=== PATIENT | male | born 1940 | race Caucasian/White ===

== ENCOUNTER 2020-01-12 11:55 | Day surgery (SDC) | payer MEDICARE ==
[2020-01-12] MEDS ORDERED: LIDOcaine 2% 5ml jelly ONE (12:42)
[2020-01-12 14:27] LABS: BASOPHILS # (AUTO) 0.1 X10'3 (0-0.2); BASOPHILS % (AUTO) 0.7 % (0-1); EOSINOPHILS # (AUTO) 0.3 X10'3 (0-0.9); EOSINOPHILS % (AUTO) 3.3 % (0-6); HEMATOCRIT 40.7 % (42.0-52.0); HEMOGLOBIN 13.8 g/dl (14.0-17.9); LYMPHOCYTES # (AUTO) 1.3 X10'3 (1.1-4.8); LYMPHOCYTES % (AUTO) 14.4 % (21-51); MEAN CORPUSCULAR VOLUME 91.1 FL (78-98); MEAN PLATELET VOLUME 8.5 FL (7.4-10.4); MONOCYTES # (AUTO) 0.6 X10'3 (0-0.9); MONOCYTES % (AUTO) 6.6 % (2-12); NEUTROPHILS # (AUTO) 6.6 X10'3 (1.8-7.7); PLATELET COUNT 185 X10'3 (140-440); RED BLOOD COUNT 4.46 X10'6 (4.70-6.10); RED CELL DISTRIBUTION WIDTH 13.8 % (11.5-14.5); WHITE BLOOD COUNT 8.7 X10'3 (4.5-11.0)
[2020-01-12 14:37] LABS: HEMOGLOBIN A1C 6.7 % (4.5-6.2)
[2020-01-12 14:43] LABS: ALANINE AMINOTRANSFERASE 18 U/L (12-78); ALBUMIN 3.7 G/DL (3.4-5.0); ALBUMIN/GLOBULIN RATIO 1.1 (1.1-1.5); ALKALINE PHOSPHATASE 54 IU/L (46-116); ANION GAP 8 (8-16); ASPARTATE AMINO TRANSFERASE 11 U/L (10-37); BILIRUBIN,TOTAL 0.4 MG/DL (0.1-1.0); BLOOD UREA NITROGEN 20 MG/DL (7-18); BUN/CREATININE RATIO 14.3 (5.4-32.0); CALCIUM 9.1 MG/DL (8.5-10.1); CHLORIDE 106 MMOL/L (99-107); GLUCOSE 113 MG/DL (70-104); POTASSIUM 4.6 MMOL/L (3.5-5.1); SODIUM 141 MMOL/L (135-145); TOTAL CARBON DIOXIDE 26.7 MMOL/L (24-32); TOTAL PROTEIN 7.1 G/DL (6.4-8.2); eGFR 49 ML/MIN
[2020-01-19] MEDS ORDERED: LIDOcaine 2% 5ml jelly ONE (09:02)
== END 2020-01-19 11:27 | disposition home or self-care (01) ==
LOC: WOUND CARE 11:55 → EDBD 12:20 → WOUND CARE 01-19 11:27
PROVIDERS: ATTEND Nurse Practitioner
DX: E11.621 Type 2 diabetes mellitus with foot ulcer (principal); L97.521 Non-pressure chronic ulcer of other part of left foot limited to breakdown of skin; E11.65 Type 2 diabetes mellitus with hyperglycemia; E07.9 Disorder of thyroid, unspecified; I10 Essential (primary) hypertension; Z87.891 Personal history of nicotine dependence
CPT/HCPCS: 36415; 73630; 80053; 82948; 83036; 85025; 93922; 93925; 93970; 97597

== ENCOUNTER 2020-01-26 08:37 | Day surgery (SDC) | payer MEDICARE ==
[2020-01-26] MEDS ORDERED: LIDOcaine 2% 5ml jelly ONE (09:05)
== END 2020-01-26 09:50 | disposition home or self-care (01) ==
LOC: WOUND CARE 08:37
PROVIDERS: ATTEND Nurse Practitioner
DX: E11.621 Type 2 diabetes mellitus with foot ulcer (principal); L97.521 Non-pressure chronic ulcer of other part of left foot limited to breakdown of skin; E11.622 Type 2 diabetes mellitus with other skin ulcer; L97.102 Non-pressure chronic ulcer of unspecified thigh with fat layer exposed; E11.65 Type 2 diabetes mellitus with hyperglycemia; E07.9 Disorder of thyroid, unspecified; I10 Essential (primary) hypertension; Z87.891 Personal history of nicotine dependence
CPT/HCPCS: 36416; 82948; 97597

== ENCOUNTER 2020-02-02 07:56 | Day surgery (SDC) | payer MEDICARE ==
[2020-02-02] MEDS ORDERED: LIDOcaine 2% 5ml jelly ONE (08:27)
== END 2020-02-02 09:00 | disposition home or self-care (01) ==
LOC: WOUND CARE 07:56
PROVIDERS: ATTEND Nurse Practitioner
DX: E11.621 Type 2 diabetes mellitus with foot ulcer (principal); L97.511 Non-pressure chronic ulcer of other part of right foot limited to breakdown of skin; L84 Corns and callosities; E11.622 Type 2 diabetes mellitus with other skin ulcer; L97.102 Non-pressure chronic ulcer of unspecified thigh with fat layer exposed; E11.65 Type 2 diabetes mellitus with hyperglycemia; E07.9 Disorder of thyroid, unspecified; I10 Essential (primary) hypertension; Z87.891 Personal history of nicotine dependence
CPT/HCPCS: 82948; 97597

== ENCOUNTER 2020-02-09 08:14 | Day surgery (SDC) | payer MEDICARE ==
[2020-02-09] MEDS ORDERED: LIDOcaine 2% 5ml jelly ONE (08:32)
== END 2020-02-09 09:10 | disposition home or self-care (01) ==
LOC: WOUND CARE 08:14
PROVIDERS: ATTEND Nurse Practitioner
DX: E11.621 Type 2 diabetes mellitus with foot ulcer (principal); L97.511 Non-pressure chronic ulcer of other part of right foot limited to breakdown of skin; E11.622 Type 2 diabetes mellitus with other skin ulcer; L97.102 Non-pressure chronic ulcer of unspecified thigh with fat layer exposed; I10 Essential (primary) hypertension; E11.65 Type 2 diabetes mellitus with hyperglycemia; E07.9 Disorder of thyroid, unspecified; L84 Corns and callosities; Z87.891 Personal history of nicotine dependence
CPT/HCPCS: 36416; 82948; 97597

== ENCOUNTER 2020-02-16 08:00 | Day surgery (SDC) | payer MEDICARE ==
[2020-02-16] MEDS ORDERED: LIDOcaine 2% 5ml jelly ONE (08:21)
== END 2020-02-16 08:49 | disposition home or self-care (01) ==
LOC: WOUND CARE 08:00
PROVIDERS: ATTEND Nurse Practitioner
DX: E11.621 Type 2 diabetes mellitus with foot ulcer (principal); L97.511 Non-pressure chronic ulcer of other part of right foot limited to breakdown of skin; L97.412 Non-pressure chronic ulcer of right heel and midfoot with fat layer exposed; L84 Corns and callosities; E11.65 Type 2 diabetes mellitus with hyperglycemia; E07.9 Disorder of thyroid, unspecified; I10 Essential (primary) hypertension; F40.240 Claustrophobia; Z87.891 Personal history of nicotine dependence
CPT/HCPCS: 36416; 82948; 97597

== ENCOUNTER 2020-02-26 08:00 | Day surgery (SDC) | payer MEDICARE ==
[2020-02-26] MEDS ORDERED: LIDOcaine 2% 5ml jelly ONE (08:22)
== END 2020-02-26 08:57 | disposition home or self-care (01) ==
LOC: WOUND CARE 08:00
PROVIDERS: ATTEND Nurse Practitioner
DX: E11.621 Type 2 diabetes mellitus with foot ulcer (principal); L97.511 Non-pressure chronic ulcer of other part of right foot limited to breakdown of skin; L97.412 Non-pressure chronic ulcer of right heel and midfoot with fat layer exposed; L84 Corns and callosities; E11.65 Type 2 diabetes mellitus with hyperglycemia; E07.9 Disorder of thyroid, unspecified; I10 Essential (primary) hypertension; F40.240 Claustrophobia; Z87.891 Personal history of nicotine dependence
CPT/HCPCS: 36416; 82948; 97597

== ENCOUNTER 2020-03-04 07:50 | Day surgery (SDC) | payer MEDICARE ==
[2020-03-04] MEDS ORDERED: LIDOcaine 2% 5ml jelly ONE (08:24)
== END 2020-03-04 09:00 | disposition home or self-care (01) ==
LOC: WOUND CARE 07:50
PROVIDERS: ATTEND Nurse Practitioner
DX: E11.621 Type 2 diabetes mellitus with foot ulcer (principal); L97.521 Non-pressure chronic ulcer of other part of left foot limited to breakdown of skin; L97.412 Non-pressure chronic ulcer of right heel and midfoot with fat layer exposed; E11.65 Type 2 diabetes mellitus with hyperglycemia; I10 Essential (primary) hypertension; E07.9 Disorder of thyroid, unspecified; L84 Corns and callosities; F40.240 Claustrophobia; Z87.891 Personal history of nicotine dependence
CPT/HCPCS: 36416; 82948; 97597

== ENCOUNTER 2020-03-11 08:10 | Outpatient (CLI) | payer MEDICARE ==
[2020-03-11] MEDS ORDERED: LIDOcaine 2% 5ml jelly ONE (08:35)
== END 2020-03-11 08:50 | disposition home or self-care (01) ==
LOC: WOUND CARE 08:10
PROVIDERS: ATTEND Nurse Practitioner
DX: E11.621 Type 2 diabetes mellitus with foot ulcer (principal); L97.511 Non-pressure chronic ulcer of other part of right foot limited to breakdown of skin; L97.412 Non-pressure chronic ulcer of right heel and midfoot with fat layer exposed; L84 Corns and callosities; E11.65 Type 2 diabetes mellitus with hyperglycemia; E07.9 Disorder of thyroid, unspecified; I10 Essential (primary) hypertension; F40.240 Claustrophobia; Z87.891 Personal history of nicotine dependence
CPT/HCPCS: 36416; 82948; 97597

== ENCOUNTER 2024-03-05 13:33 | Inpatient (IN) | payer MEDICARE ==
[~2024-03-05] VITALS: Ht 180.3 cm; Wt 96.0 kg
[~2024-03-05 13:33] MED LIST: ATOR10TA70 PO; FINA5TAB11 PO; LEVO75TA7 PO; LOSA50TA64 PO; METF-1203 PO; TERA10CA4 PO
[2024-03-05] MEDS: normal saline 1000ml 1,000 ML IV ONE (14:25)
[2024-03-05] MEDS: CefTRIAXone 2gm/D5W 50ml BAG 50 ML IV ONE (14:26)
[2024-03-05 14:37] LABS: BASOPHILS # (AUTO) 0.1 X10'3 (0-0.2); BASOPHILS % (AUTO) 0.6 % (0-1); EOSINOPHILS # (AUTO) 0.4 X10'3 (0-0.9); EOSINOPHILS % (AUTO) 2.5 % (0-6); HEMATOCRIT 35.9 % (42.0-52.0); HEMOGLOBIN 11.9 g/dl (14.0-17.9); LYMPHOCYTES # (AUTO) 0.9 X10'3 (1.1-4.8); LYMPHOCYTES % (AUTO) 6.6 % (21-51); MEAN CORPUSCULAR HEMOGLOBIN 29.4 PG (27.0-31.0); MEAN CORPUSCULAR HGB CONC 33.2 g/dL (33.0-36.5); MEAN CORPUSCULAR VOLUME 88.6 FL (78-98); MEAN PLATELET VOLUME 6.9 FL (7.4-10.4); MONOCYTES # (AUTO) 0.7 X10'3 (0-0.9); MONOCYTES % (AUTO) 4.8 % (2-12); NEUTROPHILS # (AUTO) 12.1 X10'3 (1.8-7.7); NEUTROPHILS % (AUTO) 85.5 % (42-75); PLATELET COUNT 399 X10'3 (140-440); RED BLOOD COUNT 4.04 X10'6 (4.70-6.10); RED CELL DISTRIBUTION WIDTH 13.5 % (11.5-14.5); WHITE BLOOD COUNT 14.2 X10'3 (4.5-11.0)
[2024-03-05] MEDS ORDERED: SULF1TAB45 PO (14:45)
[2024-03-05] MEDS ORDERED: LOSA1TAB36 PO (14:45)
[2024-03-05] MEDS ORDERED: AMLO5TAB16 PO (14:45)
[2024-03-05 15:04] LABS: ALANINE AMINOTRANSFERASE 9 U/L (12-78); ALBUMIN 3.2 G/DL (3.4-5.0); ALBUMIN/GLOBULIN RATIO 0.7 (1.1-1.5); ALKALINE PHOSPHATASE 62 IU/L (46-116); ANION GAP 8 (8-16); ASPARTATE AMINO TRANSFERASE 8 U/L (10-37); BILIRUBIN,TOTAL 0.5 MG/DL (0.1-1.0); BLOOD UREA NITROGEN 30 MG/DL (7-18); BUN/CREATININE RATIO 11.5 (10.0-20.0); CHLORIDE 102 MMOL/L (99-107); CREATININE 2.61 MG/DL (0.60-1.10); GLUCOSE 122 MG/DL (70-104); POTASSIUM 5.9 MMOL/L (3.5-5.1); SODIUM 134 MMOL/L (135-145); TOTAL CARBON DIOXIDE 23.6 MMOL/L (24-32); eCRCL 22 ML/MIN; eGFR 24 ML/MIN
[2024-03-05] MEDS: vancomycin/NS 1 GM ADD-VANTAGE 250 ML X 1 DOSE IV ONE (15:15)
[2024-03-05] MEDS ORDERED: albuterol 2.5 MG/3 ML nebule CONTNEB PRN (15:15)
[2024-03-05 15:58] LABS: BILIRUBIN,URINE NEGATIVE (Neg); CLARITY,URINE CLEAR (Clear); COLOR,URINE YELLOW (Yellow); GLUCOSE, URINE NEGATIVE (Neg); KETONES,URINE NEGATIVE (Neg); LEUKOCYTE ESTERASE ,URINE SMALL (Neg); NITRITES, URINE NEGATIVE (Neg); OCCULT BLOOD,URINE NEGATIVE (Neg); PH,URINE 6.5 (4.8-8.0); PROTEIN,URINE NEGATIVE (Neg); UROBILINOGEN,URINE 0.2 E.U/dL (0.2-1.0)
[2024-03-05 16:06] LABS: UA COLLECTION TYPE NON-SPECIFIED
[2024-03-05 16:07] LABS: SQUAMOUS EPITHELIAL CELL,UR FEW /LPF (FEW)
[2024-03-05 16:08] LABS: BACTERIA,URINE NONE SEEN /HPF (Neg); RBC,URINE 0-2 /HPF (0-2)
[2024-03-05] MEDS ORDERED: magnesium Cl slow-release 64mg tablet PO PRN (16:10)
[2024-03-05] MEDS ORDERED: magnesium sulf-water 2g/50mL 50 ML IV PRN (16:10)
[2024-03-05] MEDS ORDERED: potassium Cl 20 mEq SR tablet PO PRN ×2 (16:10)
[2024-03-05] MEDS ORDERED: magnesium sulf-water 4G/100mL 100 ML IV PRN (16:10)
[2024-03-05] MEDS ORDERED: potassium Cl 40MEQ/1/2NS 520ml 520 ML IV PRN (16:10)
[2024-03-05] MEDS: SODIUM ZIRCONIUM CYCLOSILICATE 10 GM POWD.PACK PO SCH (17:40)
[2024-03-05] MEDS: dextrose 50%-water 50ml dispensing syringe IV ONE (17:45)
[2024-03-05] MEDS: insulin regular, human 10 units/0.1 ml syringe SQ ONE (17:47)
[2024-03-05 18:30] LABS: HEMOGLOBIN A1C 6.6 % (4.5-6.2)
[2024-03-05 20:20] VITALS: BP 154/69; PULSE 90; RESP 18; TEMP 97.6; O2SAT 94
[2024-03-05] MEDS: K and/or MAG REPLACEMENT MC SCH (20:21)
[2024-03-05] MEDS ORDERED: morphine 2 MG/ML inj. syringe IV PRN (21:20)
[2024-03-05] MEDS: morphine 2 MG/ML inj. syringe IV PRN (21:41)
[2024-03-05 22:00] VITALS: BP 135/60; PULSE 84; RESP 14; TEMP 98.4; O2SAT 96
[2024-03-05] MEDS ORDERED: dextrose 50%-water 50ml dispensing syringe IV PRN ×2 (23:30)
[2024-03-05] MEDS ORDERED: glucagon, human recombinant 1mg kit SUBCUT PRN (23:30)
[2024-03-05] MEDS ORDERED: DEXTROSE 15 GM of carb/4 tabs (each vial/BOTTLE has 4 tablets) PO PRN ×2 (23:30)
[2024-03-05] MEDS ORDERED: HYDROcodone/acetaminophen 5mg/325mg tablet PO PRN (23:30)
[2024-03-06] MEDS: Melatonin 3mg tablet PO SCH (00:33)
[2024-03-06] MEDS: normal saline 1000ml 1,000 ML IV SCH (00:33)
[2024-03-06] MEDS: piperacillin/tazo 3.375gm/50ml 50 ML IV SCH (01:13)
[2024-03-06 04:48] LABS: BASOPHILS # (AUTO) 0.1 X10'3 (0-0.2); EOSINOPHILS # (AUTO) 0.5 X10'3 (0-0.9); EOSINOPHILS % (AUTO) 4.8 % (0-6); HEMATOCRIT 33.4 % (42.0-52.0); HEMOGLOBIN 10.9 g/dl (14.0-17.9); LYMPHOCYTES # (AUTO) 1.2 X10'3 (1.1-4.8); LYMPHOCYTES % (AUTO) 11.1 % (21-51); MEAN CORPUSCULAR HEMOGLOBIN 29.2 PG (27.0-31.0); MEAN CORPUSCULAR HGB CONC 32.8 g/dL (33.0-36.5); MEAN PLATELET VOLUME 7.1 FL (7.4-10.4); MONOCYTES # (AUTO) 0.8 X10'3 (0-0.9); MONOCYTES % (AUTO) 7.6 % (2-12); NEUTROPHILS # (AUTO) 8.1 X10'3 (1.8-7.7); NEUTROPHILS % (AUTO) 75.5 % (42-75); PLATELET COUNT 369 X10'3 (140-440); RED BLOOD COUNT 3.75 X10'6 (4.70-6.10); RED CELL DISTRIBUTION WIDTH 13.9 % (11.5-14.5); WHITE BLOOD COUNT 10.7 X10'3 (4.5-11.0)
[2024-03-06 05:03] LABS: ALBUMIN 2.5 G/DL (3.4-5.0); ANION GAP 8 (8-16); BLOOD UREA NITROGEN 27 MG/DL (7-18); BUN/CREATININE RATIO 11.4 (10.0-20.0); CALCIUM 8.6 MG/DL (8.5-10.1); CHLORIDE 106 MMOL/L (99-107); CREATININE 2.36 MG/DL (0.60-1.10); GLUCOSE 90 MG/DL (70-104); MAGNESIUM 1.9 MG/DL (1.5-2.4); POTASSIUM 5.9 MMOL/L (3.5-5.1); SODIUM 137 MMOL/L (135-145); TOTAL CARBON DIOXIDE 23.4 MMOL/L (24-32); eCRCL 25 ML/MIN; eGFR 26 ML/MIN
[2024-03-06 06:00] VITALS: BP 131/58; PULSE 75; RESP 18; TEMP 97.7; O2SAT 96
[2024-03-06] MEDS: INSULIN LISPRO 100 UNIT/ML INSULN.PEN MULTI-DOSE SQ SCH (07:00)
[2024-03-06] MEDS: levoTHYROXINE 75mcg tablet PO SCH (07:26)
[2024-03-06 08:00] VITALS: RESP 16; O2SAT 95
[2024-03-06] MEDS: SODIUM ZIRCONIUM CYCLOSILICATE 10 GM POWD.PACK PO SCH (09:53)
[2024-03-06 10:00] VITALS: BP 136/61; PULSE 80; RESP 16; TEMP 98.2; O2SAT 95
[2024-03-06] MEDS: HYDROcodone/acetaminophen 10/325mg tab PO PRN (13:07)
[2024-03-06] MEDS: finasteride 5mg tablet PO SCH (13:08)
[2024-03-06] MEDS: terazosin 5mg capsule PO SCH (13:08)
[2024-03-06] MEDS: amLODIPine 5mg tablet PO SCH (13:11)
[2024-03-06] MEDS: VANCOMYCIN 750MG IV in NS 250 ML IV SCH (15:56)
[2024-03-06 18:00] VITALS: BP 116/69; PULSE 83; RESP 16; TEMP 98.4; O2SAT 95
[2024-03-06 20:00] VITALS: RESP 16; O2SAT 95
[2024-03-06] MEDS: metoclopramide 5 mg/ml inj IV ONE (20:53)
[2024-03-06 22:00] VITALS: BP 127/57; PULSE 66; RESP 16; TEMP 98.1; O2SAT 93
[2024-03-07 05:28] LABS: ALBUMIN 2.4 G/DL (3.4-5.0); ANION GAP 7 (8-16); BLOOD UREA NITROGEN 30 MG/DL (7-18); BUN/CREATININE RATIO 11.4 (10.0-20.0); CALCIUM 8.6 MG/DL (8.5-10.1); CHLORIDE 103 MMOL/L (99-107); CREATININE 2.64 MG/DL (0.60-1.10); GLUCOSE 111 MG/DL (70-104); POTASSIUM 5.8 MMOL/L (3.5-5.1); SODIUM 136 MMOL/L (135-145); TOTAL CARBON DIOXIDE 26.4 MMOL/L (24-32); eCRCL 22 ML/MIN; eGFR 23 ML/MIN
[2024-03-07 05:29] LABS: BASOPHILS # (AUTO) 0.1 X10'3 (0-0.2); BASOPHILS % (AUTO) 1.2 % (0-1); EOSINOPHILS # (AUTO) 0.5 X10'3 (0-0.9); EOSINOPHILS % (AUTO) 4.6 % (0-6); HEMATOCRIT 32.4 % (42.0-52.0); HEMOGLOBIN 10.7 g/dl (14.0-17.9); LYMPHOCYTES # (AUTO) 1.2 X10'3 (1.1-4.8); LYMPHOCYTES % (AUTO) 12.4 % (21-51); MEAN CORPUSCULAR HEMOGLOBIN 29.5 PG (27.0-31.0); MEAN CORPUSCULAR HGB CONC 33.1 g/dL (33.0-36.5); MEAN CORPUSCULAR VOLUME 89.1 FL (78-98); MEAN PLATELET VOLUME 7.4 FL (7.4-10.4); MONOCYTES # (AUTO) 0.8 X10'3 (0-0.9); MONOCYTES % (AUTO) 8.4 % (2-12); NEUTROPHILS # (AUTO) 7.4 X10'3 (1.8-7.7); NEUTROPHILS % (AUTO) 73.4 % (42-75); PLATELET COUNT 381 X10'3 (140-440); RED BLOOD COUNT 3.64 X10'6 (4.70-6.10); RED CELL DISTRIBUTION WIDTH 13.6 % (11.5-14.5); WHITE BLOOD COUNT 10.1 X10'3 (4.5-11.0)
[2024-03-07 06:43] VITALS: BP 122/64; PULSE 66; RESP 14; TEMP 97.8; O2SAT 93
[2024-03-07 08:00] VITALS: RESP 15; O2SAT 93
[2024-03-07] MEDS: docusate sod 100mg capsule PO SCH (08:13)
[2024-03-07 09:29] LABS: THYROID STIMULATING HORMONE 4.19 ulU/ml (0.34-4.50)
[2024-03-07 10:00] VITALS: BP 132/63; PULSE 81; RESP 15; TEMP 98; O2SAT 93
[2024-03-07] MEDS: magnesium hydroxide 30ml (MOM) UD suspension PO PRN (15:31)
[2024-03-07 18:00] VITALS: BP 115/54; PULSE 73; RESP 15; TEMP 97.7; O2SAT 93
[2024-03-07 20:00] VITALS: RESP 16; O2SAT 95
[2024-03-07 22:00] VITALS: BP 149/79; PULSE 67; RESP 16; TEMP 98.3; O2SAT 95
[2024-03-08 06:00] VITALS: BP 138/59; PULSE 63; RESP 18; TEMP 98; O2SAT 93
[2024-03-08 06:40] LABS: ALBUMIN 2.4 G/DL (3.4-5.0); ANION GAP 6 (8-16); BLOOD UREA NITROGEN 31 MG/DL (7-18); BUN/CREATININE RATIO 11.9 (10.0-20.0); CALCIUM 8.6 MG/DL (8.5-10.1); CHLORIDE 103 MMOL/L (99-107); GLUCOSE 102 MG/DL (70-104); MAGNESIUM 2.3 MG/DL (1.5-2.4); POTASSIUM 5.1 MMOL/L (3.5-5.1); SODIUM 136 MMOL/L (135-145); TOTAL CARBON DIOXIDE 26.7 MMOL/L (24-32); eCRCL 23 ML/MIN; eGFR 24 ML/MIN
[2024-03-08 06:46] LABS: BASOPHILS # (AUTO) 0.1 X10'3 (0-0.2); BASOPHILS % (AUTO) 1.1 % (0-1); EOSINOPHILS # (AUTO) 0.5 X10'3 (0-0.9); EOSINOPHILS % (AUTO) 5.8 % (0-6); HEMATOCRIT 32.2 % (42.0-52.0); HEMOGLOBIN 10.7 g/dl (14.0-17.9); LYMPHOCYTES # (AUTO) 1.4 X10'3 (1.1-4.8); LYMPHOCYTES % (AUTO) 14.4 % (21-51); MEAN CORPUSCULAR HEMOGLOBIN 29.4 PG (27.0-31.0); MEAN CORPUSCULAR HGB CONC 33.1 g/dL (33.0-36.5); MEAN CORPUSCULAR VOLUME 88.7 FL (78-98); MEAN PLATELET VOLUME 7.3 FL (7.4-10.4); MONOCYTES # (AUTO) 0.7 X10'3 (0-0.9); MONOCYTES % (AUTO) 7.9 % (2-12); NEUTROPHILS # (AUTO) 6.6 X10'3 (1.8-7.7); NEUTROPHILS % (AUTO) 70.8 % (42-75); PLATELET COUNT 360 X10'3 (140-440); RED BLOOD COUNT 3.63 X10'6 (4.70-6.10); RED CELL DISTRIBUTION WIDTH 13.4 % (11.5-14.5); WHITE BLOOD COUNT 9.4 X10'3 (4.5-11.0)
[2024-03-08 08:00] VITALS: RESP 18; O2SAT 93
[2024-03-08 10:00] VITALS: BP 128/66; PULSE 72; RESP 16; TEMP 98.3; O2SAT 94
[2024-03-08] MEDS: VANCOMYCIN LEVEL IV ONE (15:19)
[2024-03-08] MEDS: bisacodyl 10mg suppository rectal RC PRN (16:42)
[2024-03-08 18:50] VITALS: BP 113/55; PULSE 73; RESP 16; TEMP 98.1; O2SAT 93
[2024-03-09 06:13] LABS: BASOPHILS # (AUTO) 0.1 X10'3 (0-0.2); BASOPHILS % (AUTO) 1.1 % (0-1); EOSINOPHILS # (AUTO) 0.6 X10'3 (0-0.9); EOSINOPHILS % (AUTO) 6.4 % (0-6); HEMATOCRIT 32.7 % (42.0-52.0); HEMOGLOBIN 10.7 g/dl (14.0-17.9); LYMPHOCYTES # (AUTO) 1.5 X10'3 (1.1-4.8); LYMPHOCYTES % (AUTO) 16.5 % (21-51); MEAN CORPUSCULAR HEMOGLOBIN 29.3 PG (27.0-31.0); MEAN CORPUSCULAR HGB CONC 32.8 g/dL (33.0-36.5); MEAN CORPUSCULAR VOLUME 89.5 FL (78-98); MEAN PLATELET VOLUME 7.4 FL (7.4-10.4); MONOCYTES # (AUTO) 0.7 X10'3 (0-0.9); MONOCYTES % (AUTO) 7.4 % (2-12); NEUTROPHILS # (AUTO) 6.3 X10'3 (1.8-7.7); NEUTROPHILS % (AUTO) 68.6 % (42-75); PLATELET COUNT 337 X10'3 (140-440); RED BLOOD COUNT 3.65 X10'6 (4.70-6.10); RED CELL DISTRIBUTION WIDTH 13.5 % (11.5-14.5); WHITE BLOOD COUNT 9.1 X10'3 (4.5-11.0)
[2024-03-09 06:18] LABS: ALBUMIN 2.4 G/DL (3.4-5.0); ANION GAP 7 (8-16); BLOOD UREA NITROGEN 34 MG/DL (7-18); BUN/CREATININE RATIO 13.8 (10.0-20.0); CALCIUM 8.7 MG/DL (8.5-10.1); CHLORIDE 105 MMOL/L (99-107); CREATININE 2.46 MG/DL (0.60-1.10); GLUCOSE 106 MG/DL (70-104); MAGNESIUM 2.5 MG/DL (1.5-2.4); POTASSIUM 5.1 MMOL/L (3.5-5.1); SODIUM 137 MMOL/L (135-145); TOTAL CARBON DIOXIDE 24.7 MMOL/L (24-32); eCRCL 24 ML/MIN; eGFR 25 ML/MIN
[2024-03-09 18:00] VITALS: BP 142/72; PULSE 74; RESP 20; TEMP 97.3; O2SAT 97
[2024-03-09] MEDS: CefTRIAXone 2gm/D5W 50ml BAG 50 ML IV SCH (19:36)
[2024-03-09] MEDS: metroNIDAZOLE 500mg tablet PO SCH (19:42)
[2024-03-09] MEDS ORDERED: DEXTROSE 15 GM of carb/4 tabs (each vial/BOTTLE has 4 tablets) PO PRN ×2 (19:50)
[2024-03-09] MEDS ORDERED: dextrose 50%-water 50ml dispensing syringe IV PRN ×2 (19:50)
[2024-03-09] MEDS ORDERED: glucagon, human recombinant 1mg kit SUBCUT PRN (19:50)
[2024-03-09 20:00] VITALS: RESP 14; O2SAT 97
[2024-03-09] MEDS: vancomycin/NS 1 GM ADD-VANTAGE 250 ML IV SCH (20:27)
[2024-03-09] MEDS: heparin, porcine 5000 units/ml vial SQ SCH (20:44)
[2024-03-09] MEDS: atorvastatin 20mg tablet PO SCH (20:44)
[2024-03-09] MEDS ORDERED: INSULIN LISPRO 100 UNIT/ML INSULN.PEN MULTI-DOSE SQ SCH (21:00)
[2024-03-09 22:00] VITALS: BP 138/72; PULSE 61; TEMP 97.3; O2SAT 95
[2024-03-09] MEDS: cefepime 1GM/NS ADD-VANTAGE 100 ML IV SCH (22:14)
[2024-03-10] MEDS: cefepime 1GM/NS ADD-VANTAGE 100 ML IV SCH (05:26)
[2024-03-10 06:00] VITALS: BP 146/69; PULSE 60; RESP 16; TEMP 97.6; O2SAT 95
[2024-03-10 06:12] LABS: ALBUMIN 2.4 G/DL (3.4-5.0); ANION GAP 4 (8-16); BLOOD UREA NITROGEN 34 MG/DL (7-18); BUN/CREATININE RATIO 13.9 (10.0-20.0); CALCIUM 8.5 MG/DL (8.5-10.1); CHLORIDE 105 MMOL/L (99-107); CHOL/HDL RATIO 3.5 (0.00-4.99); CHOLESTEROL 107 MG/DL (0-200); CREATININE 2.44 MG/DL (0.60-1.10); GLUCOSE 110 MG/DL (70-104); HDL CHOLESTEROL 31 MG/DL (35-60); LDL CHOLESTEROL 57 MG/DL (50-100); POTASSIUM 5.3 MMOL/L (3.5-5.1); SODIUM 136 MMOL/L (135-145); TOTAL CARBON DIOXIDE 26.6 MMOL/L (24-32); TRIGLYCERIDES 98 MG/DL (20-135); eCRCL 24 ML/MIN; eGFR 25 ML/MIN
[2024-03-10 06:14] LABS: BASOPHILS # (AUTO) 0.1 X10'3 (0-0.2); BASOPHILS % (AUTO) 1.3 % (0-1); EOSINOPHILS # (AUTO) 0.6 X10'3 (0-0.9); EOSINOPHILS % (AUTO) 6.4 % (0-6); HEMATOCRIT 33.5 % (42.0-52.0); HEMOGLOBIN 11.1 g/dl (14.0-17.9); LYMPHOCYTES # (AUTO) 1.4 X10'3 (1.1-4.8); LYMPHOCYTES % (AUTO) 13.5 % (21-51); MEAN CORPUSCULAR HEMOGLOBIN 29.5 PG (27.0-31.0); MEAN CORPUSCULAR HGB CONC 33.2 g/dL (33.0-36.5); MEAN PLATELET VOLUME 7.3 FL (7.4-10.4); MONOCYTES # (AUTO) 0.8 X10'3 (0-0.9); MONOCYTES % (AUTO) 7.9 % (2-12); NEUTROPHILS # (AUTO) 7.2 X10'3 (1.8-7.7); NEUTROPHILS % (AUTO) 70.9 % (42-75); PLATELET COUNT 353 X10'3 (140-440); RED BLOOD COUNT 3.77 X10'6 (4.70-6.10); RED CELL DISTRIBUTION WIDTH 13.6 % (11.5-14.5); WHITE BLOOD COUNT 10.2 X10'3 (4.5-11.0)
[2024-03-10 07:30] VITALS: RESP 16
[2024-03-10] MEDS: CefTRIAXone 2gm/D5W 50ml BAG 50 ML IV SCH (08:30)
[2024-03-10 11:16] VITALS: BP 143/64; PULSE 83; RESP 16; TEMP 97.9; O2SAT 94
[2024-03-10] MEDS ORDERED: METR-159 PO (11:42)
[2024-03-10] MEDS: furosemide 40mg/4ml inj IV ONE (19:05)
[2024-03-10] MEDS: PATIROMER CALCIUM SORBITEX 8.4 GM POWD.PACK PO SCH (20:00)
[2024-03-11 06:00] VITALS: BP 162/66; PULSE 58; RESP 18; TEMP 96.9; O2SAT 96
[2024-03-11 10:00] VITALS: BP 115/72; PULSE 77; RESP 17; TEMP 97.6; O2SAT 95
[2024-03-11 14:10] VITALS: RESP 14; O2SAT 98
[2024-03-11] MEDS ORDERED: JUVEN Smoothie Arginine/Glut./Ca2+Bmb (Juven 19.3pkt) 240ml cup PO SCH (17:30)
[2024-03-12] MEDS ORDERED: VANCOMYCIN LEVEL IV ONE (14:30)
== END 2024-03-11 16:40 | disposition home health service (06) | DRG 872 ==
LOC: ER 13:34 → ED HOLD 16:12 → SUR 3N 20:20
PROVIDERS: ADMIT Internal Medicine; ATTEND Internal Medicine
PROC: 02HV33Z Insertion of Infusion Device into Superior Vena Cava, Percutaneous Approach (ICD-10-PCS; principal; 2024-03-10)
DX: A41.9 Sepsis, unspecified organism (principal); M00.9 Pyogenic arthritis, unspecified; M86.8X7 Other osteomyelitis, ankle and foot; N17.9 Acute kidney failure, unspecified; E11.69 Type 2 diabetes mellitus with other specified complication; E11.621 Type 2 diabetes mellitus with foot ulcer; M24.374 Pathological dislocation of right foot, not elsewhere classified; E11.22 Type 2 diabetes mellitus with diabetic chronic kidney disease; E03.9 Hypothyroidism, unspecified; E88.09 Other disorders of plasma-protein metabolism, not elsewhere classified; E87.5 Hyperkalemia; N18.9 Chronic kidney disease, unspecified; N40.0 Benign prostatic hyperplasia without lower urinary tract symptoms; D64.9 Anemia, unspecified; M25.474 Effusion, right foot; E78.00 Pure hypercholesterolemia, unspecified; I12.9 Hypertensive chronic kidney disease with stage 1 through stage 4 chronic kidney disease, or unspecified chronic kidney disease; S91.301A Unspecified open wound, right foot, initial encounter; E11.42 Type 2 diabetes mellitus with diabetic polyneuropathy; E11.51 Type 2 diabetes mellitus with diabetic peripheral angiopathy without gangrene; E11.628 Type 2 diabetes mellitus with other skin complications; L97.519 Non-pressure chronic ulcer of other part of right foot with unspecified severity; X58.XXXA Exposure to other specified factors, initial encounter; Y93.89 Activity, other specified; Y92.89 Other specified places as the place of occurrence of the external cause; Y99.8 Other external cause status; Z79.84 Long term (current) use of oral hypoglycemic drugs; Z79.899 Other long term (current) drug therapy
CPT/HCPCS: 36415; 36569; 71045; 73630; 73718; 73719; 76942; 80048; 80053; 80061; 80202; 81001; 82948; 83036; 83605; 83735; 84132; 84145; 84443; 85025; 87040; 87081; 87088; 93005; 93922; 93926; 97116; 97161; 97530; 99285; A6196; A6223; A6258; A6266; A6446; A6449; C1751; G0378; J0692; J0696; J1644; J1815; J2270; J2543; J2765; J3370; J3490; J7030; J7040; J7050; J7120

== ENCOUNTER 2024-05-13 07:13 | Day surgery (SDC) | payer MEDICARE ==
[~2024-05-13] VITALS: Ht 180.3 cm; Wt 89.9 kg
[2024-05-13] VITALS (11 sets, daily range): BP systolic 118–146; BP diastolic 69–87; PULSE 74–98; RESP 14–16; TEMP 98.6; O2SAT 92–95
[~2024-05-13 07:13] MED LIST changes: +AMLO5TAB16 PO; -ATOR10TA70 PO; -LOSA50TA64 PO; -METF-1203 PO; +METR-159 PO
[2024-05-13] MEDS ORDERED: MULT-467 PO (08:12)
[2024-05-13] MEDS ORDERED: EMPA25TA PO (08:12)
[2024-05-13] MEDS ORDERED: ATOR10TA70 PO (08:12)
[2024-05-13 08:20] LABS: BASOPHILS # (AUTO) 0.1 X10'3 (0-0.2); BASOPHILS % (AUTO) 0.9 % (0-1); EOSINOPHILS # (AUTO) 0.4 X10'3 (0-0.9); EOSINOPHILS % (AUTO) 5.9 % (0-6); HEMOGLOBIN 13.7 g/dl (14.0-17.9); LYMPHOCYTES # (AUTO) 1.1 X10'3 (1.1-4.8); MEAN CORPUSCULAR HEMOGLOBIN 29.1 PG (27.0-31.0); MEAN CORPUSCULAR HGB CONC 33.5 g/dL (33.0-36.5); MEAN PLATELET VOLUME 7.8 FL (7.4-10.4); MONOCYTES # (AUTO) 0.5 X10'3 (0-0.9); MONOCYTES % (AUTO) 7.8 % (2-12); NEUTROPHILS # (AUTO) 4.8 X10'3 (1.8-7.7); NEUTROPHILS % (AUTO) 69.4 % (42-75); PLATELET COUNT 225 X10'3 (140-440); RED BLOOD COUNT 4.71 X10'6 (4.70-6.10); RED CELL DISTRIBUTION WIDTH 16.4 % (11.5-14.5); WHITE BLOOD COUNT 6.9 X10'3 (4.5-11.0)
[2024-05-13 08:38] LABS: ALBUMIN 3.2 G/DL (3.4-5.0); ANION GAP 11 (8-16); BLOOD UREA NITROGEN 29 MG/DL (7-18); BUN/CREATININE RATIO 13.2 (10.0-20.0); CALCIUM 8.7 MG/DL (8.5-10.1); CHLORIDE 103 MMOL/L (99-107); GLUCOSE 170 MG/DL (70-104); POTASSIUM 4.4 MMOL/L (3.5-5.1); SODIUM 138 MMOL/L (135-145); TOTAL CARBON DIOXIDE 23.6 MMOL/L (24-32); eGFR 29 ML/MIN
[2024-05-13 08:43] LABS: APTT 28 SECONDS (22-32); PROTHROMBIN TIME 10.5 SECONDS (9.0-12.0)
[2024-05-13] MEDS ORDERED: iohexol 300mg/ml 100ml inj. ONE (09:55)
[2024-05-13] MEDS ORDERED: heparin 1,000 UNITS/NS 500ml 500 ML ONE (09:55)
[2024-05-13] MEDS ORDERED: fentaNYL/PF 50MCG/1 ML 2ML syringe ONE ×2 (10:15→11:27)
[2024-05-13] MEDS ORDERED: midazolam 1 mg/ML 2ml injection ONE (10:15)
[2024-05-13] MEDS ORDERED: ondansetron/PF 4mg/2ml inj ONE (10:32)
[2024-05-13] MEDS ORDERED: diphenhydrAMINE 50 mg/ml inj ONE (10:42)
[2024-05-13] MEDS ORDERED: heparin 1,000unit/ml 10ml vial 10 ML ONE (11:38)
[2024-05-13] MEDS: HYDROcodone/acetaminophen 10/325mg tab PO ONE (12:43)
[2024-05-13] MEDS: normal saline 1000ml 1,000 ML IV PRN (12:43)
== END 2024-05-13 16:45 | disposition home or self-care (01) ==
LOC: SSTAY O 07:13
PROVIDERS: ATTEND Surgery
DX: I70.235 Atherosclerosis of native arteries of right leg with ulceration of other part of foot (principal); E11.40 Type 2 diabetes mellitus with diabetic neuropathy, unspecified; I10 Essential (primary) hypertension; L97.519 Non-pressure chronic ulcer of other part of right foot with unspecified severity; E11.69 Type 2 diabetes mellitus with other specified complication; M86.171 Other acute osteomyelitis, right ankle and foot; Z79.01 Long term (current) use of anticoagulants; Z98.890 Other specified postprocedural states; E11.621 Type 2 diabetes mellitus with foot ulcer; E03.9 Hypothyroidism, unspecified; Z79.2 Long term (current) use of antibiotics; Z79.899 Other long term (current) drug therapy
CPT/HCPCS: 36140; 36415; 37224; 75710; 80048; 82948; 85025; 85610; 85730; 93922; 93925; C1760; C1769; J1200; J1644; J2250; J3010; J7030; Q9967; 99152; 99153; A4620; C1894; C2623; J2405

== ENCOUNTER 2024-06-03 09:59 | Day surgery (SDC) | payer MEDICARE, OTHER ==
[~2024-06-03] VITALS: Ht 180.3 cm; Wt 90.7 kg
[~2024-06-03 09:59] MED LIST changes: +ATOR10TA70 PO; +EMPA25TA PO; -METR-159 PO; +MULT-467 PO
[2024-06-03 10:20] VITALS: BP 160/80; PULSE 91; RESP 16; TEMP 98.3; O2SAT 95
[2024-06-03 11:10] LABS: BASOPHILS # (AUTO) 0.1 X10'3 (0-0.2); BASOPHILS % (AUTO) 1.3 % (0-1); EOSINOPHILS # (AUTO) 0.3 X10'3 (0-0.9); EOSINOPHILS % (AUTO) 3.3 % (0-6); LYMPHOCYTES # (AUTO) 1.4 X10'3 (1.1-4.8); LYMPHOCYTES % (AUTO) 15.1 % (21-51); MEAN CORPUSCULAR HGB CONC 33.4 g/dL (33.0-36.5); MEAN CORPUSCULAR VOLUME 86.7 FL (78-98); MEAN PLATELET VOLUME 7.7 FL (7.4-10.4); MONOCYTES # (AUTO) 0.6 X10'3 (0-0.9); NEUTROPHILS % (AUTO) 74.3 % (42-75); PRE OP HEMATOCRIT 41.3 % (42.0-52.0); PRE OP HEMOGLOBIN 13.8 g/dL (14.0-17.9); PRE OP PLATELET COUNT 241 X10'3 (140-440); PRE OP WHITE BLOOD COUNT 9.4 10'3 (4.8-10.8); RED BLOOD COUNT 4.77 X10'6 (4.70-6.10); RED CELL DISTRIBUTION WIDTH 16.2 % (11.5-14.5)
[2024-06-03] MEDS: ringers solution, lacted 1,000 ML IV SCH (11:11)
[2024-06-03] MEDS: ceFAZolin 2gm in dextrose, iso 50 ML IV ONE (11:11)
[2024-06-03] MEDS: VANCOMYCIN/H2O 1.5g/300mL PB 300 ML IV ONE (11:12)
[2024-06-03] MEDS: famotidine 20mg tablet PO ONE (11:12)
[2024-06-03] MEDS ORDERED: BUPIVAcaine 2.5mg/ml inj 50ml vial (contains preservative) ONE (11:16)
[2024-06-03 11:40] LABS: ALBUMIN 3.5 G/DL (3.4-5.0); ALKALINE PHOSPHATASE 70 IU/L (46-116); BLOOD UREA NITROGEN 32 MG/DL (7-18); BUN/CREATININE RATIO 17.1 (10.0-20.0); CALCIUM 9.3 MG/DL (8.5-10.1); CHLORIDE 106 MMOL/L (99-107); CREATININE 1.87 MG/DL (0.60-1.10); PRE OP ALT 18 U/L (30-65); PRE OP ANION GAP 10 (8-16); PRE OP AST 7 U/L (10-37); PRE OP BILIRUB, TOTAL 0.5 MG/DL (0.0-1.0); PRE OP GLUCOSE 123 MG/DL (70-104); PRE OP POTASSIUM 4.4 MMOL/L (3.4-5.1); PRE OP SODIUM 141 MMOL/L (135-145); TOTAL CARBON DIOXIDE 25.5 MMOL/L (24-32); eCRCL 31 ML/MIN; eGFR 35 ML/MIN
[2024-06-03] MEDS ORDERED: cloNIDine hcl/PF 100mcg/ml inj ONE (13:20)
[2024-06-03] MEDS ORDERED: sevoflurane 250ml liquid IH ONE (13:40)
[2024-06-03] MEDS ORDERED: meperidine/PF 25mg/ml syringe IV PRN ×3 (13:45)
[2024-06-03] MEDS ORDERED: ondansetron/PF 4mg/2ml inj IV PRN (13:45)
[2024-06-03] MEDS ORDERED: morphine 4 MG/ML inj SYRINge IV PRN (13:45)
[2024-06-03] MEDS ORDERED: ringers solution, lacted 1,000 ML IV SCH (13:45)
[2024-06-03] MEDS ORDERED: fentaNYL/PF 50MCG/1 ML 2ML syringe ONE (13:45)
[2024-06-03] MEDS ORDERED: morphine 2 MG/ML inj. syringe IV PRN (13:45)
[2024-06-03] MEDS ORDERED: proCHLORperazine 10 MG/2 ml inj IV PRN (13:45)
[2024-06-03] MEDS ORDERED: hydrALAZINE 20mg/ml inj. IV PRN (13:45)
[2024-06-03] MEDS ORDERED: labetalol 20mg/4ml (5mg/ml) syringe IV PRN (13:45)
[2024-06-03] MEDS ORDERED: propofol inj 20 ML IV ONE (14:01)
[2024-06-03] MEDS ORDERED: midazolam 1 mg/ML 2ml injection ONE (14:01)
[2024-06-03] MEDS ORDERED: ondansetron/PF 4mg/2ml inj ONE (14:01)
[2024-06-03] MEDS ORDERED: dexamethasone sod phosphate 4mg/ml inj. ONE (14:01)
[2024-06-03] MEDS ORDERED: LIDOcaine 2% (20mg/ml) 5ml vial ONE (14:01)
[2024-06-03] MEDS ORDERED: ROPIVAcaine 0.5% (5mg/ml) 30ml vial ONE (14:01)
[2024-06-03] MEDS ORDERED: vancomycin 1,000mg inj ONE (14:09)
[2024-06-03 14:27] VITALS: BP 162/85; PULSE 79; RESP 16; O2SAT 99
[2024-06-03] MEDS: acetaminophen 1,000mg/100ml IV 100 ML IV ONE (14:38)
[2024-06-03 14:40] VITALS: BP 151/75; PULSE 74; RESP 16; O2SAT 99
[2024-06-03 14:50] VITALS: BP 142/72; PULSE 75; RESP 14; O2SAT 92
[2024-06-03 15:00] VITALS: BP 136/64; PULSE 75; RESP 12; O2SAT 93
[2024-06-03 15:10] VITALS: BP 146/74; PULSE 75; RESP 12; O2SAT 95
== END 2024-06-03 15:47 | disposition home or self-care (01) ==
LOC: PAS 09:59
PROVIDERS: ATTEND Orthopaedic Surgery Orthopaedic Trauma
DX: E11.69 Type 2 diabetes mellitus with other specified complication (principal); M86.171 Other acute osteomyelitis, right ankle and foot; I10 Essential (primary) hypertension; E11.621 Type 2 diabetes mellitus with foot ulcer; E03.9 Hypothyroidism, unspecified; E78.5 Hyperlipidemia, unspecified; Z79.2 Long term (current) use of antibiotics; N40.1 Benign prostatic hyperplasia with lower urinary tract symptoms; G89.18 Other acute postprocedural pain; Z98.890 Other specified postprocedural states; Z87.891 Personal history of nicotine dependence; Z79.899 Other long term (current) drug therapy
CPT/HCPCS: 28810; 36415; 64450; 76942; 80053; 85025; 87070; 87075; 87077; 87186; A4618; A6222; A6402; A6446; A6449; A7000; J0131; J0690; J0735; J1100; J2003; J2250; J2405; J2704; J2795; J3010; J3370; J3372; J3490; J7030; J7120; Z7506; Z7512; Z7610